=== PATIENT | male | born 1935 | race Caucasian/White ===

== ENCOUNTER 2022-03-22 07:48 | Outpatient (CLI) | payer MEDICARE, SELFPAY | END 2022-03-22 07:49 | disposition home or self-care (01) | PROVIDERS: PCP Family Medicine; Visit Provider Family Medicine | DX: H90.3 Sensorineural hearing loss, bilateral (principal) | CPT/HCPCS: 92557; 92567 ==

== ENCOUNTER 2022-08-14 14:00 | Outpatient (CLI) | payer MEDICARE, SELFPAY ==
[2022-08-14 22:10] LABS: Alanine Aminotransferase 19 U/L (6-50); Alkaline Phosphatase 55 U/L (38-126); Anion Gap 7 mmol/L (8-16); Aspartate Amino Transferase 23 U/L (17-59); Bilirubin,Total 0.6 mg/dL (0.2-1.3); Blood Urea Nitrogen 17 mg/dL (9-20); Calcium 8.9 mg/dL (8.4-10.2); Carbon Dioxide 31 mmol/L (22-30); Chloride 97 mmol/L (98-107); Estimated Glomerular Filt Rate > 60; Glucose 297 mg/dL (65-110); Sodium 135 mmol/L (137-145)
== END 2022-08-14 14:01 | disposition home or self-care (01) ==
LOC: ANHGOSHLAB 14:01
PROVIDERS: PCP Family Medicine; Visit Provider Family Medicine
DX: E11.9 Type 2 diabetes mellitus without complications (principal); E78.5 Hyperlipidemia, unspecified; I10 Essential (primary) hypertension
CPT/HCPCS: 36415; 80053; 83036